=== PATIENT | female | born 1935 | race Caucasian/White ===

== ENCOUNTER 2024-06-15 16:56 | Emergency (ER) | payer MEDICARE ==
[~2024-06-15] VITALS: Ht 160 cm; Wt 82.2 kg
[2024-06-15] MEDS ORDERED: PEPCID20 MG PO (18:11)
[2024-06-15] MEDS ORDERED: ONDANSETRON HCL INJ 2MG/ML 2ML 2 MG/ML VIAL ONE (18:27)
[2024-06-15] MEDS ORDERED: ONDANSETRON ODT4 MG PO (18:29)
[2024-06-15] MEDS: ONDANSETRON HCL INJ 2MG/ML 2ML 2 MG/ML VIAL IV STA (18:31)
[2024-06-15 18:46] VITALS: PULSE 60; RESP 16; TEMP 97.6; O2SAT 100
[2024-06-15] MEDS ORDERED: ATACAND4 MG PO (18:49)
== END 2024-06-15 18:46 | disposition home or self-care (01) ==
LOC: FSED 17:04
DX: R11.0 Nausea (principal); K45.8 Other specified abdominal hernia without obstruction or gangrene; I25.10 Atherosclerotic heart disease of native coronary artery without angina pectoris; N28.1 Cyst of kidney, acquired
CPT/HCPCS: 74176; 80053; 81003; 85025; 96374; 99284; J2405